=== PATIENT | female | born 1980 | race Caucasian/White ===

== ENCOUNTER 2016-08-20 12:53 | Emergency (ER) | payer SELFPAY ==
[~2016-08-20] VITALS: Ht 157.5 cm; Wt 67.0 kg
[~2016-08-20 12:53] MED LIST: AMOX875 PO; MEDR4PAK3 PO
[2016-08-20 12:56] VITALS: BP 133/76; PULSE 63; RESP 16; TEMP 98.3; O2SAT 96
[2016-08-20] MEDS ORDERED: METH10TA PO (13:11)
[2016-08-20] MEDS ORDERED: BACT800T5 PO (13:21)
[2016-08-20] MEDS ORDERED: IBUP800T23 PO (13:21)
[2016-08-20] MEDS ORDERED: CEPH-460 PO (13:21)
--- NOTE | 2016-08-20 13:26 | PD ---
HPI Chief Complaint: Skin Problem Time Seen by Provider: 13:22 Travel History International Travel<30 days: No Contact w/Intl Traveler<30days: No Traveled to known affect area: No History of Present Illness HPI 36-year-old female presents the emergency department with erythematous swollen area over the right volar forearm and over the left dorsal hand that been present over the past several days. Patient has been using compresses to the areas without much improvement. She denies fever, streaking, or inability to move arm or hand. No previous history of MRSA. Patient is an IV drug user. She is allergic to tramadol. 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; IV OPIATES 1 WEEK AGO ( STATED 08/20/16)) Allergies-Medications (Allergen,Severity, Reaction): Coded Allergies: Tramadol (Verified Adverse Reaction, Intermediate, nausea, 08/20/16) Reported Meds & Prescriptions Reported Meds & Active Scripts Active Keflex (Cephalexin) 500 Mg Cap 500 Mg PO Q8H Ibuprofen 800 Mg Tab 800 Mg PO Q8H PRN Bactrim DS (Sulfamethoxazole-Trimethoprim) 800-160 Mg Tab 1 Tab PO BID Reported Methadone (Methadone HCl) 10 Mg Tab 50 Mg PO DAILY Review of Systems Except as stated in HPI: all other systems reviewed are Neg General / Constitutional: No: Fever, Chills Eyes: No: Visual changes HENT: No: Headaches Cardiovascular: No: Chest Pain or Discomfort Respiratory: No: Shortness of Breath Gastrointestinal: No: Abdominal Pain Genitourinary: No: Dysuria Musculoskeletal: No: Pain Skin: Positive Lesions, No Rash Neurologic: No: Weakness Psychiatric: No: Depression Endocrine: No: Polydipsia Hematologic/Lymphatic: No: Easy Bruising Physical Exam Narrative GENERAL: Patient appears in no acute distress. SKIN: Warm and dry. Normal color. Normal turgor. Patient has tender, warm, erythematous, raised lesion to the right volar forearm approximately 3 cm in diameter without obvious abscess or pointing. She has a similar small areas to the dorsal left hand measuring 0.5 cm in diameter. Again no obvious abscess formation at this time. HEAD: Atraumatic. Normocephalic. EYES: Pupils equal and round. No scleral icterus. No injection or drainage. ENT: No nasal bleeding or discharge. Mucous membranes pink and moist. NECK: Trachea midline. No JVD. CARDIOVASCULAR: Regular rate and rhythm. RESPIRATORY: No accessory muscle use. Clear to auscultation. Breath sounds equal bilaterally. MUSCULOSKELETAL: Extremities without clubbing, cyanosis, or edema. No obvious deformities. NEUROLOGICAL: Awake and alert. No obvious cranial nerve deficits. Motor grossly within normal limits. Five out of 5 muscle strength in the arms and legs. Normal speech. PSYCHIATRIC: Appropriate mood and affect; insight and judgment normal. Data Data Last Documented VS Vital Signs Date Time Temp Pulse Resp B/P Pulse Ox O2 Delivery O2 Flow Rate FiO2 08/20/16 12:56 98.3 63 16 133/76 96 MDM Medical Decision Making Medical Screen Exam Complete: Yes Emergency Medical Condition: Yes Medical Record Reviewed: Yes Differential Diagnosis IV drug use. Cellulitis. Possible early abscess. Possible MRSA. Narrative Course Patient is medically stable at time of exam. Drainable abscesses not felt present at this time. Patient is given Bactrim DS twice a day 2 weeks as well as Keflex 500 mg 3 times a day times one week. Patient is given ibuprofen 800 mg 3 times daily with food #30. Patient is to continue hot compresses to the area and follow-up in 2 days for recheck or sooner if symptoms warrant as discussed. Diagnosis Primary Impression: Cellulitis of right arm Additional Impressions: Cellulitis of left hand excluding fingers and thumb IV drug user Referrals: [facility] Patient Instructions: Cellulitis (ED), General Instructions Additional Instructions: Patient is medically stable at time of exam. Drainable abscesses not felt present at this time. Patient is given Bactrim DS twice a day 2 weeks as well as Keflex 500 mg 3 times a day times one week. Patient is given ibuprofen 800 mg 3 times daily with food #30. Patient is to continue hot compresses to the area and follow-up in 2 days for recheck or sooner if symptoms warrant as discussed. Med/Other Pt SpecificInfo: Prescription(s) given Scripts Cephalexin (Keflex)500 Mg [id number] Mg PO Q8H #21 CAP Prov:Simi Villafana MD 08/20/16 Ibuprofen 800 Mg [id number] Mg PO Q8H PRN (Pain/Inflammation) #30 TAB Prov:Simi Villafana MD 08/20/16 Sulfamethoxazole-Trimethoprim (Bactrim DS)800-160 Mg Tab1 Tab PO BID #28 TAB Prov:Simi Villafana MD 08/20/16 Disposition: 01 DISCHARGE HOME Condition: Stable Taiwo Arevalo Aug 20, 2016 13:26
== END 2016-08-20 13:41 | disposition home or self-care (01) ==
LOC: PHEFT 12:53
DX: L03.113 Cellulitis of right upper limb (principal); F17.210 Nicotine dependence, cigarettes, uncomplicated; F11.20 Opioid dependence, uncomplicated
CPT/HCPCS: 99282

== ENCOUNTER 2016-09-20 15:50 | Emergency (ER) | payer SELFPAY ==
[~2016-09-20] VITALS: Ht 157.5 cm; Wt 67.0 kg
[~2016-09-20 15:50] MED LIST changes: -AMOX875 PO; +BACT800T5 PO; +CEPH-460 PO; +IBUP800T23 PO; -MEDR4PAK3 PO; +METH10TA PO
[2016-09-20 15:54] VITALS: BP 133/79; PULSE 62; RESP 16; TEMP 97.9; O2SAT 98
--- NOTE | 2016-09-20 16:06 | PD ---
HPI Chief Complaint: ENT Complaint Time Seen by Provider: 16:05 Travel History International Travel<30 days: No Contact w/Intl Traveler<30days: No Traveled to known affect area: No History of Present Illness HPI 36 year old right hand dominant female with PMH of migraine headaches, IVDA presents to the ED for evaluation of 1 week history of headache, sore throat, sinus congestion, chills and malaise. Gradual onset. Headache described as pounding, over the frontal region. Accompanied by nausea and photophobia. Patient denies fevers, cough, difficulties swallowing, chest pain, SOB, vomiting , dysuria, neck or back pain. Denies difficulties with speech, facial droop. She also complains of numbness, tingling, weakness and pain of bilateral wrists x 1 month. Right greater than left. Pain wakes her from sleep. She has treated with ibuprofen with minimal improvement of symptoms. 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 She is a current smoker. She denies current IVDA. 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 SKIN: Warm and dry. Multiple tattoos HEAD: Normocephalic. Atraumatic. EYES: No scleral icterus. No injection or drainage. PERRLA. EOMI. ENT: Pearly whitney tympanic membranes bilaterally. Nasal mucosa is moist. Oropharynx with mild posterior erythema. No edema or exudate. NECK: Supple, trachea midline. No JVD or lymphadenopathy. No nuchal rigidity. CARDIOVASCULAR: Regular rate and rhythm without murmurs, gallops, or rubs. 2+ DP and radial pulses bilaterally. RESPIRATORY: Breath sounds clear and equal bilaterally. No accessory muscle use. GASTROINTESTINAL: Abdomen soft, non-tender, nondistended. + Bowel sounds MUSCULOSKELETAL: No cyanosis, or edema. Patient is ambulatory and moves the extrimites spontaneously. FOCUSED BILATERAL UPPER EXTREMITY EXAM: 2+ radial pulses. Patient retains full, active, painless ROM of the bilateral wrists. Strong finger to thumb opposition bilaterally. Neurovascularly intact bilaterally. TINNELS test: positive PHALENS test:positive NEUROLOGICAL: Awake and alert. Cranial nerves II through XII intact. Motor and sensory grossly within normal limits. 5/5 muscle strength in all muscle groups. Normal speech. No pronator drift. No ataxia. BACK: Nontender without obvious deformity. No CVA tenderness. Data Data Last Documented VS Vital Signs Date Time Temp Pulse Resp B/P Pulse Ox O2 Delivery O2 Flow Rate FiO2 09/20/16 15:54 97.9 62 16 133/79 98 Orders Group A Rapid Strep Screen (09/20/16 16:13) Influenzae A/B Antigen (09/20/16 16:14) ^ Insert Iv (09/20/16 16:15) Iv Access Insert/Monitor (09/20/16 16:15) Sodium Chloride 0.9% Flush (Ns Flush) (09/20/16 16:15) Ketorolac Inj (Toradol Inj) (09/20/16 16:15) Prochlorperazine Inj (Compazine Inj) (09/20/16 16:15) Diphenhydramine Inj (Benadryl Inj) (09/20/16 16:15) Sodium Chlor 0.9% 1000 Ml Inj (Ns 1000 M (09/20/16 16:15) Strep Culture (Group A) (09/20/16 16:15) MDM Medical Decision Making Medical Screen Exam Complete: Yes Emergency Medical Condition: Yes Differential Diagnosis viral syndrome versus influenza versus pharyngitis versus carpal tunnel syndrome versus arthritis versus less likely ICH versus other Narrative Course 36 year old right hand dominant female with PMH of migraine headaches, IVDA presents to the ED for evaluation of 1 week history of headache, sore throat, sinus congestion, chills and malaise. Gradual onset. Headache described as pounding, over the frontal region. Accompanied by nausea and photophobia. Patient denies fevers, cough, difficulties swallowing, chest pain, SOB, vomiting , dysuria, neck or back pain, difficulties with speech, or facial droop. She also complains of numbness, tingling, weakness and pain of bilateral wrists x 1 month. Right greater than left. Pain wakes her from sleep. 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 She is a current smoker. She denies current IVDA. Patient is afebrile, HR 62 on presentation. Physical exam reveals a nontoxic appearing white female in NAD. No focal neuro defects. No nuchal rigidity. There is mild posterior oropharyngeal erythema. Tinells and Phalens test positive. IV was established. The patient was administered toradol, benadryl, compazine and a liter of NS. Rapid strep and influenza testing negative. Patient is sleeping on recheck. Upon waking when IV fluid completed the patient endorses improvement of her headache symptoms. This is pharyngitis, acute headache and bilateral carpal tunnel. Patient is instructed to utilize ptum-lvi-zhcrwic braces at night to minimize symptoms of carpal tunnel. She was provided a section for viscous lidocaine, gargle and spit as needed for pharyngitis. She is instructed to rest , hydrate, avoid known stressors, follow-up with her primary care provider. She was given community outpatient resource information. She indicated understanding of the instructions and is agreeable to the care plan. She is stable and discharged home. Diagnosis Primary Impression: Headache Qualified Code: R51 - Acute nonintractable headache, unspecified headache type Additional Impressions: Pharyngitis Qualified Code: J02.9 - Pharyngitis, unspecified etiology Carpal tunnel syndrome, bilateral upper limbs Referrals: Primary Care Physician Patient Instructions: Acute Headache (ED), Carpal Tunnel Syndrome (DC), Carpal Tunnel Syndrome Exercises (GEN), General Instructions, Pharyngitis (ED) Additional Instructions: Rest, hydrate. Stop smoking! Avoid known stressors. Consider OTC wrist braces at night for carpal tunnel symptoms. Viscous lidocaine, gargle and spit for continued sore throat. OTC medications for headaches. Return for worsening of symptoms. Follow up with the primary care. Return to the ED for any urgent or emergent medical condition. Med/Other Pt SpecificInfo: Prescription(s) given Scripts Lidocaine Viscous Liq 2 % Liqd5 Ml SWISH-SPIT DIRECTED PRN (PAIN) #1 BOTTLE Ref 0 Prov:Augustin Peralta MD 09/20/16 Disposition: 01 DISCHARGE HOME Condition: Stable Mary Johnson September 20, 2016 16:06
[2016-09-20] MEDS ORDERED: diphenhydrAMINE HCL 50 MG/ML VIAL IVP ONE (16:15)
[2016-09-20] MEDS ORDERED: KETOROLAC TROMETHAMINE 30 MG/ML (IVP) VIAL IVP ONE (16:15)
[2016-09-20] MEDS ORDERED: SODIUM CHLORIDE 0.9% FLUSH 10 ML FLUSH IVF PRN (16:15)
[2016-09-20] MEDS ORDERED: SODIUM CHLOR 0.9% 1000 ML INJ 1,000 ML IV ONE (16:15)
[2016-09-20] MEDS ORDERED: PROCHLORPERAZINE INJ 10 MG/2 ML VIAL IVP ONE (16:15)
[2016-09-20] MEDS ORDERED: LIDO1SOL8 SWISH-SPIT (17:04)
== END 2016-09-20 17:55 | disposition home or self-care (01) ==
LOC: PHEFT 15:50
DX: R51 Headache (principal); J02.9 Acute pharyngitis, unspecified; G56.03 Carpal tunnel syndrome, bilateral upper limbs; R09.81 Nasal congestion; R53.81 Other malaise; F17.200 Nicotine dependence, unspecified, uncomplicated
CPT/HCPCS: 87081; 87804; 87880; 96361; 96374; 96375; 99284; J0780; J1200; J1885; J7030

== ENCOUNTER 2017-06-08 17:49 | Emergency (ER) | payer MEDICAID ==
[~2017-06-08] VITALS: Ht 157.5 cm; Wt 65.0 kg
[~2017-06-08 17:49] MED LIST changes: -BACT800T5 PO; -CEPH-460 PO; -IBUP800T23 PO; +LIDO1SOL8 SWISH-SPIT
[2017-06-08 17:52] VITALS: BP 117/60; PULSE 82; RESP 13; TEMP 99.5; O2SAT 97
[2017-06-08] MEDS ORDERED: METH10TA PO (18:49)
[2017-06-08] MEDS ORDERED: ONDANSETRON ODT 4 MG TAB PO ONE (19:15)
[2017-06-08] MEDS ORDERED: IBUPROFEN 800 MG TAB PO ONE (20:15)
[2017-06-08 20:21] VITALS: BP 107/57; PULSE 75; RESP 18; TEMP 100; O2SAT 99
[2017-06-08 20:27] LABS: BACTERIA, URINE RARE /hpf; BILIRUBIN, URINE NEG (NEG); BLOOD, URINE NEG (NEG); GLUCOSE,URINE NEG (NEG); KETONE, URINE NEG (NEG); MUCUS URINE FEW /lpf (OCC); NITRITE,URINE NEG (NEG); SQUAMOUS EPITHELIAL CELL URINE 5 /hpf (0-5); URINE COLOR YELLOW (YELLW/STRAW); URINE LEUKOCYTE ESTERASE TRACE (NEG)
--- NOTE | 2017-06-08 21:13 | PD ---
HPI Chief Complaint: GI Complaint Time Seen by Provider: 19:10 Travel History International Travel<30 days: No Contact w/Intl Traveler<30days: No Traveled to known affect area: No History of Present Illness HPI 37-year-old female presents to the emergency department by private transportation for 2 days of fever cough congestion sore throat myalgias and arthralgias associated with nausea and vomiting 2. No hematemesis no coffee- ground emesis nonbilious emesis. No diarrhea or abdominal pain. Patient is taken ibuprofen last dose approximately 8 hours prior to arrival to the emergency department. Patient states she takes methadone daily. Patient denies any chronic medical conditions. Patient rates overall discomfort is moderate to severe. Patient states because of painful swallowing his decreased oral intake. Patient denies any dysuria frequency or urgency. 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) Allergies-Medications (Allergen,Severity, Reaction): Coded Allergies: tramadol (Unverified Adverse Reaction, Intermediate, nausea, 06/08/17) Reported Meds & Prescriptions Reported Meds & Active Scripts Active Lidocaine Viscous Liq 2 % Liqd 5 Ml SWISH-SPIT DIRECTED PRN Reported Methadone (Methadone HCl) 10 Mg Tab 10 Mg PO DAILY Methadone (Methadone HCl) 10 Mg Tab 110 Mg PO DAILY Review of Systems Except as stated in HPI: all other systems reviewed are Neg General / Constitutional: Positive: Fever HENT: Positive: Sore Throat, Congestion Cardiovascular: No: Chest Pain or Discomfort Respiratory: Positive: Cough Gastrointestinal: Positive: Nausea, Vomiting (x2), No: Abdominal Pain Genitourinary: No: Dysuria, Flank Pain Musculoskeletal: Positive: Myalgias, Arthralgias Skin: No Rash Neurologic: No: Weakness Psychiatric: No: Anxiety Hematologic/Lymphatic: No: Lymph Node Enlargement Physical Exam Narrative GENERAL: Well-developed well-nourished female in no acute distress or respiratory distress SKIN: Warm and dry. HEAD: Normocephalic. EYES: No scleral icterus. No injection or drainage. ENT: Mucous membranes moist posterior pharynx without exudate change to the right tonsillar pillar NECK: Supple, trachea midline. No JVD or lymphadenopathy. CARDIOVASCULAR: Regular rate and rhythm without murmurs, gallops, or rubs. RESPIRATORY: Breath sounds equal bilaterally. No accessory muscle use. GASTROINTESTINAL: Abdomen soft, non-tender, nondistended. MUSCULOSKELETAL: No cyanosis, or edema. BACK: Nontender without obvious deformity. No CVA tenderness. Data Data Last Documented VS Vital Signs Date Time Temp Pulse Resp B/P (MAP) Pulse Ox O2 Delivery O2 Flow Rate FiO2 06/08/17 20:21 100.0 75 18 107/57 (74) 99 Room Air Orders Orders Urinalysis - C+S If Indicated (06/08/17 19:11) Ed Urine Pregnancytest Poc (06/08/17 19:11) Influenzae A/B Antigen (06/08/17 19:11) Group A Rapid Strep Screen (06/08/17 19:11) Ondansetron Odt (Zofran Odt) (06/08/17 19:15) Ibuprofen (Motrin) (06/08/17 20:15) Strep Culture (Group A) (06/08/17 19:54) Ed Discharge Order (06/08/17 21:09) Labs Laboratory Tests Test 06/08/17 19:54 Urine Color YELLOW Urine Turbidity HAZY Urine pH 6.0 Urine Specific [place] 1.023 Urine Protein NEG mg/dL Urine Glucose (UA) NEG mg/dL Urine Ketones NEG mg/dL Urine Occult Blood NEG Urine Nitrite NEG Urine Bilirubin NEG Urine Urobilinogen 4.0 MG/DL Urine Leukocyte Esterase TRACE Urine RBC 2 /hpf Urine WBC 3 /hpf Urine Squamous Epithelial Cells 5 /hpf Urine Bacteria RARE /hpf Urine Mucus FEW /lpf Microscopic Urinalysis Comment CULT NOT INDICATED MDM Medical Decision Making Medical Screen Exam Complete: Yes Emergency Medical Condition: Yes Medical Record Reviewed: Yes Interpretation(s) Influenza A/B antigen: Negative Rapid strep antigen: Negative Urinalysis: Culture not indicated [id number] hCG: Negative Differential Diagnosis Viral syndrome, influenza, pharyngitis, tonsillitis, gastroenteritis, dehydration, UTI Narrative Course Specimens collected and sent for resulting patient administer oral Zofran 4 mg ODT Patient initiate ibuprofen 800 mg 1 dose [id number] hCG negative; influenza A/B antigen negative; rapid strep antigen negative Patient is stable for outpatient management Diagnosis Primary Impression: Pharyngitis Referrals: Primary Care Physician call for appointment Patient Instructions: General Instructions Additional Instructions: Increase fluid hydration Use [id number] lozenges Chloraseptic [employer] and warm salt water gargles Take acetaminophen/Tylenol every 4 hours for fever 100.4F or greater take ibuprofen 600 mg every 6 hours up to 800 mg every 8 hours for fever 100.4 F or greater for pain associated inflammation Complete course of antibiotic Phenergan as prescribed as needed for nausea and/or vomiting Med/Other Pt SpecificInfo: Prescription(s) given Scripts Amoxicillin (Amoxicillin) 500 Mg Tab 500 MG PO TID for Infection for 10 Days, TAB 0 Refills Prov: Kaleigh Abbott MD 06/08/17 Promethazine (Phenergan) 25 Mg Tablet 25 MG PO Q6H Y for NAUSEA OR VOMITING, #10 TAB 0 Refills Prov: Kaleigh Abbott MD 06/08/17 Disposition: 01 DISCHARGE HOME Condition: Stable Kaleigh Abbott MD Jun 08, 2017 21:13
[2017-06-08] MEDS ORDERED: AMOX500T PO (21:16)
[2017-06-08] MEDS ORDERED: PROM25TA10 PO (21:16)
== END 2017-06-08 21:26 | disposition home or self-care (01) ==
LOC: NEPC 17:49
DX: J02.9 Acute pharyngitis, unspecified (principal); R11.2 Nausea with vomiting, unspecified; M79.1 Myalgia; F17.210 Nicotine dependence, cigarettes, uncomplicated
CPT/HCPCS: 81001; 84703; 87081; 87804; 87880; 99283